=== PATIENT | male | born 1985 | race Caucasian/White ===

== ENCOUNTER 2017-04-19 00:34 | Emergency (ER) | payer OTHER ==
[2017-04-19 01:56] LABS: CALCIUM 8.8 mg/dL (8.5-10.1); CARBON DIOXIDE 29.9 mmol/L (21-32); CHLORIDE SERUM 102 mmol/L (98-107); GFR1 > 60 mL/min; GLUCOSE SERUM 95 mg/dL (74-106); POTASSIUM SERUM 3.7 mmol/L (3.5-5.1); SODIUM SERUM 140 mmol/L (136-145)
[2017-04-19 02:00] LABS: PLATELET COUNT 235 x10^3mcL (130-400); RED CELL DISTRIBUTION WIDTH 11.7 % (11.5-14.5)
[2017-04-19 02:01] LABS: ALKALINE PHOSPHATASE 75 U/L (46-116); ALT/SGPT 27 U/L (16-63); AMYLASE 68 U/L (25-115); AST/SGOT 22 U/L (15-37); BASOPHIL % 3.9 % (0-2); BILIRUBIN TOTAL 0.46 mg/dL (0.20-1.00); LIPASE 228 IU/L (73-393); TOTAL PROTEIN, SERUM 7.6 g/dL (6.4-8.2)
[2017-04-19 03:38] VITALS: BP 128/70
== END 2017-04-19 03:38 | disposition home or self-care (01) ==
LOC: ED 00:34
PROVIDERS: Emergency Medicine
DX: R10.9 Unspecified abdominal pain (principal); M25.539 Pain in unspecified wrist
CPT/HCPCS: 36415; 83880; J1885; Q0092

== ENCOUNTER 2017-05-01 11:42 | Emergency (ER) | payer OTHER ==
[~2017-05-01] VITALS: Ht 182.9 cm; Wt 72.6 kg
[2017-05-01 17:03] VITALS: BP 114/80
== END 2017-05-01 17:03 | disposition home or self-care (01) ==
LOC: ED 11:42
DX: K59.00 Constipation, unspecified (principal); K60.2 Anal fissure, unspecified

== ENCOUNTER 2019-01-06 09:09 | Emergency (ER) | payer SELFPAY ==
[~2019-01-06] VITALS: Ht 182.9 cm; Wt 71.2 kg
[2019-01-06 09:20] VITALS: Ht 182.9 cm; Wt 71.2 kg
[2019-01-06 10:04] LABS: BASOPHIL % 0.7 % (0-2); PLATELET COUNT 233 x10^3mcL (130-400); RED CELL DISTRIBUTION WIDTH 12.6 % (11.5-14.5)
[2019-01-06 10:13] LABS: CALCIUM 9.2 mg/dL (8.5-10.1); CARBON DIOXIDE 31.1 mmol/L (21-32); CHLORIDE SERUM 109 mmol/L (98-107); CREATININE SERUM 1.1 mg/dL (0.7-1.3); GFR1 > 60 mL/min; GLUCOSE SERUM 86 mg/dL (74-106); POTASSIUM SERUM 4.1 mmol/L (3.5-5.1); SODIUM SERUM 144 mmol/L (136-145)
[2019-01-06 10:13] LABS: microscopic required? NO
[2019-01-06 10:17] LABS: ALKALINE PHOSPHATASE 58 U/L (46-116); ALT/SGPT 41 U/L (16-63); AST/SGOT 19 U/L (15-37); BILIRUBIN TOTAL 0.6 mg/dL (0.20-1.00); LIPASE 164 IU/L (73-393); TOTAL PROTEIN, SERUM 7.3 g/dL (6.4-8.2)
[2019-01-06 10:42] LABS: UA SPECIFIC GRAVITY 1.025 (1.005-1.035); urine erythrocyte NEGATIVE (NEGATIVE)
[2019-01-06 12:31] VITALS: BP 123/69
== END 2019-01-06 12:31 | disposition home or self-care (01) ==
LOC: ED 09:09
PROVIDERS: Emergency Medicine
DX: K59.00 Constipation, unspecified (principal); Z87.19 Personal history of other diseases of the digestive system; F17.210 Nicotine dependence, cigarettes, uncomplicated
CPT/HCPCS: 36415; Q0092; Q9967